=== PATIENT | female | born 1955 | race American Indian/Alaskan Native ===

== ENCOUNTER → 2021-06-16 12:21 | Outpatient (CLI) | payer MEDICAID, OTHER, SELFPAY ==
--- NOTE | 2021-06-16 | DI.RAD.S_ITS ---
PROCEDURE: XR TOE RT MIN 2V INDICATIONS: Pain in right toe(s) TECHNIQUE: 3 views of the right toe(s) acquired. COMPARISON: None. FINDINGS: Bones: No fractures or dislocations. No suspicious bony lesions. Diffuse interphalangeal degenerative changes. The lesser toes are not well evaluated on the lateral view secondary to superimposition and flexion. Moderate 1st MTP joint degeneration. Soft tissues: No suspicious soft tissue densities. IMPRESSION: Degenerative changes as above. No definite fracture or focal osseous destruction although limited evaluation for reasons outlined above. If the patient's pain or other symptoms persist, consider further evaluation with MRI Dictated by: Joe Ortega M.D. on 06/16/2021 at 12:51 Approved by: Joe Ortega M.D. on 06/16/2021 at 12:55
== END ==
PROVIDERS: Referring Provider Physician Assistant; Visit Provider Physician Assistant
DX: M79.674 Pain in right toe(s) (principal); M19.071 Primary osteoarthritis, right ankle and foot
CPT/HCPCS: 73660

== ENCOUNTER → 2021-10-21 15:22 | Outpatient (CLI) | payer MEDICAID, OTHER, SELFPAY ==
--- NOTE | 2021-10-21 | DI.RAD.S_ITS ---
PROCEDURE: XR HAND LT MIN 3V INDICATIONS: LT HAND PAIN TECHNIQUE: 3 views of the hand(s) acquired. COMPARISON: None. FINDINGS: Bones: No fractures or dislocations. Carpal bones are normally aligned. No suspicious bony lesions. Mild left CMC joint osteoarthritis. Mild 1st through 5th interphalangeal joint osteoarthritis. Bones mildly osteopenic. Soft tissues: No suspicious soft tissue calcifications. IMPRESSION: No fracture. No acute osseous lesion. If symptoms and/or clinical suspicion for pathology persists, further assessment with repeat radiographs (7-10 days) or advanced imaging (e.g. CT, MRI or bone scan) should be considered. Dictated by: Milvia Vaughn MD, PhD on 10/21/2021 at 17:43 Approved by: Milvia Vaughn MD, PhD on 10/21/2021 at 17:44
== END ==
PROVIDERS: Referring Provider Physician Assistant; Visit Provider Physician Assistant
DX: M79.642 Pain in left hand (principal)
CPT/HCPCS: 73130

== ENCOUNTER → 2022-07-28 07:53 | Outpatient (CLI) | payer MEDICAID, OTHER, SELFPAY ==
[2022-07-28 08:37] LABS: Add Manual Diff / Slide Review NO; Basophils Absolute Auto 100 /uL (0-100); Eosinophils Absolute Auto 200 /uL (0-450); Eosinophils Percent Auto 2.6 % (2-4); Hematocrit 43.4 % (36-46); Hemoglobin 14.6 g/dL (12.0-16.0); Lymphocytes Absolute Auto 1600 /uL (1100-4500); Lymphocytes Percent Auto 25.1 % (25-40); Mean Corpuscular HGB Conc 33.7 % (30-36); Mean Corpuscular Hemoglobin 27.8 PG (26-34); Mean Corpuscular Volume 82.3 fL (80-100); Monocytes Absolute Auto 500 /uL (0-900); Monocytes Percent Auto 8.4 % (3-14); Neutrophils Absolute Auto 4100 /uL (1500-7000); Neutrophils Percent Auto 62.9 % (50-75); Platelet Count 228 X10^3/uL (150-400); Red Blood Cell Count 5.27 X10^6/uL (4.0-5.2); Red Cell Distribution Width 14.5 % (11.6-14.8); White Blood Cell Count 6.5 X10^3/uL (4.5-11.0)
== END ==
PROVIDERS: PCP Physician Assistant; Referring Provider Physician Assistant; Visit Provider Family Medicine
DX: R71.8 Other abnormality of red blood cells (principal)
CPT/HCPCS: 36415; 85025; 87077; 87086; 87186

== ENCOUNTER 2023-11-10 09:00 | Outpatient (RCR) | payer MEDICARE, MEDICAID, OTHER, SELFPAY ==
--- NOTE | 2023-10-25 16:34 | PT.OIE ---
Current Diagnoses Sprain of unspecified rotator cuff capsule, subsequent encounter (10/25/23) Visit Care Team Role Provider Type Nadine Han PA-C Family Provider Non-Staff Primary Care Provider Specialty: Medical Address: [id number] [place] [address], [place], [address] Email: Dmitry Bui MD Attending Provider Non-Staff Referring Provider Specialty: Family Practice Address: [id number] [place] [address]., [place], [address] Email: Physical Therapy Initial Evaluation PT-OP-A Visit Information Start: 10/25/23 09:01 Freq: Status: Active Protocol: Document 10/25/23 09:01 NM (Rec: 10/25/23 09:52 NM [id number]) Out-Patient Physical Therapy Visit Information Visit Information Visit Type Initial Evaluation Visit Note KX after 19 visits ea year Visit Start Time 09:00 Visit Stop Time 09:45 Total Visit Minutes 45 Visit Number 1 Evaluation Information Evaluation Date 10/25/23 PT-OP-B Current Condition Start: 10/25/23 09:01 Freq: Status: Active Protocol: Document 10/25/23 09:01 NM (Rec: 10/25/23 09:52 NM [id number]) Current Condition History of Current Condition Onset Date 1 yr ago Current Complaints difficulty with reaching, lifting, weakness History of Current Condition Pt presents with B shoulder pain (L>R) beginning 1 year ago. Her R arm only recently began bothering her. She reports no known ALISHA, but states that her shoulder pain is worse with reaching overhead or forward, lifting, sleeping (sleeps with arm in ER above head), and dressing. Her shoulder pain has worsened since about 8 months ago. She also reports difficulty with being able to open jars. 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 Pt is currently retired, but formerly worked in an office. Pt reports that she regularly gets acupuncture for her hands and knees, which she finds relieves her pain. Prior Treatments and Tests no imaging or previous treatment other than acupuncture; no known follow up with MD (Dr. Dmitry Bui ) Treatment Goals Patient/Caregiver Goals to decrease shoulder pain Prior Functional Status Baseline Function- ADL's Independent Baseline Function- Mobility Independent Baseline Function- Recreation/Hobbies Participates in hand crafts ( weaving, etc) Current Functional Impairments (Reported) Functional Limitations- ADL's Limitations with dressing (has to do R arm first), washing her back, lifting >15#, reaching overhead or forward PT-OP-C Subjective Start: 10/25/23 09:01 Freq: Status: Active Protocol: Document 10/25/23 09:01 NM (Rec: 10/25/23 09:52 NM [id number]) OP-PT Subjective Patient Comments Patient Comments See hx above for pt report Patient Questionnaires Quick Dash- Upper Extremity Quick Dash UE Score 35 (54.5%) OP-PT Pain Assessment Pain Assessment Grid Paper Pain Assessment Grid Completed Yes Location Left shoulder Pain Location Details anterior shoulder, biceps tendon Intensity 7 Scale Used Numeric (0 - 10) Description Aching,Sharp Frequency Frequent Pain Duration sharp with activity Radiating Location to elbow Pain Aggravating Factors Position,ADL's,Activity, Exercise,Lifting Pain Alleviating Factors Massage Other Pain Alleviating Factors Acupuncture R shoulder Pain Location Details anterior shoulder and anterior humerus Intensity 7 Description Aching,Sharp Frequency Frequent Pain Duration sharp with activity Radiating Location to elbow Pain Aggravating Factors Position,ADL's,Activity, Exercise,Lifting Pain Alleviating Factors Massage Other Pain Alleviating Factors Acupuncture Home Pain Medication Use Pain Medications Used No Pain Behaviors Pain Behaviors Guarding,Holding Area,Wincing PT-OP-E Functional Tests Start: 10/25/23 09:01 Freq: Status: Active Protocol: Document 10/25/23 09:01 NM (Rec: 10/25/23 09:52 NM [id number]) Functional Tests Apley's Scratch Test Action 1- Left opp shoulder, painful Action 1- Right opp shoulder, painful Action 2- Left T4, painful Action 2- Right T4, painful Action 3- Left S1, painful Action 3- Right T12 PT-OP-F Manual Assessment Start: 10/25/23 09:01 Freq: Status: Active Protocol: Document 10/25/23 09:01 NM (Rec: 10/25/23 09:52 NM [id number]) Manual Assessments Soft Tissue Assessment Soft Tissue Mobility Assessment Pt has superficial soft tissue restrictions of B upper traps , periscapular/rotator cuff muscles; moderate soft tissue restrictions of pectoralis muscles (L>R). Joint Mobility Assessment Joint Mobility Assessment No clicking, popping, or catching of B shoulders with PROM assessment. Pt has full PROM of R shoulder, soft tissue stretch end feel. PROM is limited with L shoulder in flexion/abduction, and pt demos empty endfeel. PT-OP-H Neuro Start: 10/25/23 09:01 Freq: Status: Active Protocol: Document 10/25/23 09:01 NM (Rec: 10/25/23 09:52 NM [id number]) Sensation Evaluation Gross Sensation Gross Sensation WNL Comments Summary Comments Intact to light touch sensation of C4-T2 dermatomes. PT-OP-J Posture/Palpation/Skin Start: 10/25/23 09:01 Freq: Status: Active Protocol: Document 10/25/23 09:01 NM (Rec: 10/25/23 09:52 NM [id number]) Posture Evaluation Position Standing Evaluation View posterior and lateral Head/C-Spine Posture Forward Head T-Spine Posture Increased Kyphosis L-Spine Posture Increased Lordosis Shoulder Posture (L) Rounded,(R) Rounded,(L) Elevated Scapula Posture (L) Elevated,(L) Winged,(R) Winged Arm Posture (L) Internally Rotated,(R) Internally Rotated Palpation Assessment Location Right shoulder Palpation Location anterior humerus, biceps tendon, rotator cuff Palpation Findings Tenderness Palpation Details Tenderness of R anterior shoulder near R biceps tendon (long head), rotator cuff insertion of humerus Left shoulder Palpation Location anterior humerus, Biceps tendon, rotator cuff, post scapula, pec Palpation Findings Soft Tissue Tightness, Tenderness Palpation Details Tenderness of L pectoralis, anterior shoulder near L biceps tendon (long head), rotator cuff muscle insertion of humerus, minimal tenderness along medial scapula border PT-OP-K Range of Motion Start: 10/25/23 09:01 Freq: Status: Active Protocol: Document 10/25/23 09:01 NM (Rec: 10/25/23 09:52 NM [id number]) Cervical Spine Range of Motion Cervical Spine Active Degrees Testing Position Sitting Flexion 45 Extension 45 Rotation Left 70 Rotation Right 65 Lateral Flexion Left 25 Lateral Flexion Right 25 ROM Limitations Soft Tissue Tightness Shoulder Goniometric Range of Motion Shoulder Left Shoulder ROM WFL No Testing Position Supine Flexion 150 Abduction 130 External Rotation at 90 degrees 60 Abduction External Rotation at 45 degrees 70 Abduction Internal Rotation 80 Internal Rotation Behind Back (text) S1 (painful) Comments Reports pain with AROM flex, abd, ER Right Shoulder ROM WFL No Testing Position Supine Flexion 160 Abduction 170 External Rotation at 90 degrees 80 Abduction External Rotation at 45 degrees 80 Abduction Internal Rotation 80 Internal Rotation Behind Back (text) T12 Comments Pain with IR Shoulder ROM Limitations Shoulder ROM Limitations Soft Tissue Tightness,Muscle Weakness,Pain PT-OP-L Special Tests Start: 10/25/23 09:01 Freq: Status: Active Protocol: Document 10/25/23 09:01 NM (Rec: 10/25/23 09:52 NM [id number]) Special Tests Shoulder Special Tests Neer Impingement Test Results positive (L) IR/Horizontal ADD Impingement Test Results negative (B) Grind Labrum Test Results negative (B) [place] Impingement Test Results positive (L) External Rotation Lag Sign Test Results negative (B) Empty Can Test Results positive (B) Comments pain worse with IR Drop Arm Rotator Cuff Test Results negative (B) Lift-Off Rotator Cuff Test Results negative (B) [place] Test Test Results positive (L) Comments worse with IR Speed's Biceps Test Results positive (L) Yergason's Biceps Test Results negative (B) Clunk Test Test Results negative (B) Biceps Load II Test Test Results negative (B) PT-OP-M Strength Start: 10/25/23 09:01 Freq: Status: Active Protocol: Document 10/25/23 09:01 NM (Rec: 10/25/23 09:52 NM [id number]) Scapula Strength Scapula Manual Muscle Testing Left Elevation (C4) 4- Good- Adduction 4- Good- Abduction 4- Good- Depression 4- Good- Comments No pain reported with scapulothoracic motion Right Elevation (C4) 4- Good- Adduction 4- Good- Abduction 4- Good- Depression 4- Good- Shoulder Strength Shoulder Manual Muscle Testing Left Flexion 4- Good- Extension 4- Good- Abduction (C5) 4- Good- Adduction 4- Good- External Rotation 4- Good- Internal Rotation 4- Good- Comments Pain reported with all motions , worse with ER Right Flexion 4- Good- Extension 4- Good- Abduction (C5) 4- Good- Adduction 4- Good- External Rotation 4- Good- Internal Rotation 4- Good- Comments Pain with all motion, worse with resisted flexion Elbow/Forearm Strength Elbow and Forearm Manual Muscle Testing Left Flexion (C6) 4- Good- Extension (C7) 4- Good- Comments Reproduces shoulder pain with resisted elbow flex Right Flexion (C6) 4- Good- Extension (C7) 4+ Good+ Comments Reproduces shoulder pain with resisted elbow flex PT-OP-T Assessment and Plan Start: 10/25/23 09:01 Freq: Status: Active Protocol: Document 10/25/23 09:01 NM (Rec: 10/25/23 09:52 NM [id number]) Physical Therapy Assessment Rehab Potential Rehabilitation Potential Good Evaluation Complexity Number of Personal Factors/Comorbidities 3 or More Number of Body Systems Impaired 1-2 Clinical Presentation at Evaluation Stable Impairments Impairments Activity Tolerance,Functional Activities,Functional Mobility ,Integument,Pain,Posture,ROM, Soft Tissue Mobility,Strength Goals Six Impairment sleep, function Impairment Reports difficulty with sleeping due to pain Shelter Goal (LTG) Pt will report improved ability to sleep (at least 3 consecutive hours) with shoulder pain of 7/10 or less in order to demonstrate improved QOL. LTG Duration 8 weeks Five Impairment strength Impairment B shoulder strength MMT flex, Abd, ER, IR: 4-/5 Short Term Goal (STG) Pt will increase B global shoulder strength (flex, abd, ER, IR) to at least 4/5 with pain of 4/10 or less in order to demonstrate improved strength for lifting during ADLs. STG Duration 4 weeks Poising Inspector Goal (LTG) Pt will increase B global shoulder strength (flex, abd, ER, IR) to at least 4+/5 with pain of 4/10 or less in order to demonstrate improved strength for lifting during ADLs. LTG Duration 8 weeks Four Impairment ROM Impairment B shoulder AROM limitations Short Term Goal (STG) Pt will increase B shoulder AROM flex/abd by at least 10 deg ea in order to demonstrate improved ROM for reaching overhead for ADLs and to the side for dressing. STG Duration 4 weeks Shelter Goal (LTG) Pt will increase B shoulder AROM flex/abd by at least 20 deg ea in order to demonstrate improved ROM for reaching overhead for ADLs and to the side for dressing. LTG Duration 8 weeks Three Impairment ROM Impairment L shoulder AROM limitations flex: 150 deg abd: 130 deg Short Term Goal (STG) Pt will increase L shoulder AROM flex/abd by at least 15 deg ea in order to demonstrate improved ROM for reaching overhead during ADLs. STG Duration 4 weeks Poising Inspector Goal (LTG) Pt will increase L shoulder AROM flex/abd by at least 20 deg ea in order to demonstrate improved ROM for reaching overhead during ADLs. LTG Duration 8 weeks Two Impairment function Impairment L Apley IR S1 Short Term Goal (STG) Pt will improve L Apley IR reach test to at least L3 in order to demonstrate improved ability to perform ADLs and dressing. Poising Inspector Goal (LTG) Pt will improve L Apley IR reach test to at least T12 in order to demonstrate improved ability to perform ADLs and dressing. LTG Duration 8 weeks One Impairment function Impairment Quickdash: 35 or 54.5% disability Short Term Goal (STG) Pt will decrease her quickdash score by at least 5 points in order to demonstrate improved activity tolerance and ability to perform ADLs. STG Duration 4 weeks Poising Inspector Goal (LTG) Pt will decrease her quickdash score by at least 10 points ( 1 MCID) in order to demonstrate improved activity tolerance and ability to perform ADLs. LTG Duration 8 weeks Assessment Summary Assessment Pt is a 67 y.o. female presenting with B shoulder pain (L>R) beginning 1 year ago, worsening over the past few months. Symptoms are consistent with rotator cuff weakness and shoulder impingement with possible involvement of the biceps long head tendon. Pt demos limitations in L PROM and AROM , in addition to global decreased L shoulder strength. Pt also has limitations in R shoulder AROM (full PROM) and strength, but L shoulder is worse. She has soft tissue restrictions of the cervical spine paraspinals, pectoralis major muscles bilaterally. Pt' s primary site of pain is along the anterior portion of the humerus near the biceps tendon and rotator cuff muscle insertion. Pt is positive for B shoulder impingement special tests and Speed's/O' Francesco's tests. Pt's posture is kyphotic with a forward head posture and rounded shoulders. She reports difficulty with completing ADLs and participating in recreational activities (e.g. lifting). Pt would benefit from skilled PT to address strengthening of B rotator cuffs and periscapular muscles to restore to the scapulohumeral rhythm, improve B shoulder ROM, and to reduce pain symptoms in order to improve QOL and increase activity tolerance. Physical Therapy Plan Frequency and Duration Frequency of Treatment 2x/Week Duration of treatment (weeks) 8 Plan of Care Start Date 10/25/23 Plan of Care End Date 12/20/23 Therapeutic Interventions Therapeutic Interventions Home Exercise Program,Joint Mobilizations,Manual Therapy, Neuromuscular Re-education, Orthotic/Prosthetic Management ,Patient/Caregiver Education, Self-Care/Home Management,Soft Tissue Mobilization,Taping, Therapeutic Activities, Therapeutic Exercises Modalities Biofeedback,Cold Pack/Ice Massage,Electric Stimulation, Hot Packs,Infrared Therapy, Iontophoresis,Ultrasound, Vasopneumatic Devices Next Visit Focus/Plan Next Note Type Treatment Note Next Visit Plan Initiate periscapular strengthening, gentle ROM. Trial manual therapy (joint mobilizations, grade II to III ). Education: sleep posture, sitting posture (ergonomics)
--- NOTE | 2023-10-27 12:31 | PT.OTN ---
Current Diagnoses Sprain of unspecified rotator cuff capsule, subsequent encounter (10/27/23) Physical Therapy Treatment Note PT-OP-A Visit Information Start: 10/25/23 09:01 Freq: Status: Active Protocol: Document 10/27/23 09:02 NM (Rec: 10/27/23 09:48 NM [id number]) Out-Patient Physical Therapy Visit Information Visit Information Visit Type Treatment Note Visit Note KX after 19 visits ea year Visit Start Time 09:03 Visit Stop Time 09:45 Total Visit Minutes 42 Visit Number 2 Evaluation Information Evaluation Date 10/25/23 PT-OP-B Current Condition Start: 10/25/23 09:01 Freq: Status: Active Protocol: Document 10/25/23 09:01 NM (Rec: 10/25/23 09:52 NM [id number]) Current Condition History of Current Condition Onset Date 1 yr ago Current Complaints difficulty with reaching, lifting, weakness History of Current Condition Pt presents with B shoulder pain (L>R) beginning 1 year ago. Her R arm only recently began bothering her. She reports no known ALISHA, but states that her shoulder pain is worse with reaching overhead or forward, lifting, sleeping (sleeps with arm in ER above head), and dressing. Her shoulder pain has worsened since about 8 months ago. She also reports difficulty with being able to open jars. 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 Pt is currently retired, but formerly worked in an office. Pt reports that she regularly gets acupuncture for her hands and knees, which she finds relieves her pain. Prior Treatments and Tests no imaging or previous treatment other than acupuncture; no known follow up with MD (Dr. Dmitry Bui ) Treatment Goals Patient/Caregiver Goals to decrease shoulder pain Prior Functional Status Baseline Function- ADL's Independent Baseline Function- Mobility Independent Baseline Function- Recreation/Hobbies Participates in hand crafts ( weaving, etc) Current Functional Impairments (Reported) Functional Limitations- ADL's Limitations with dressing (has to do R arm first), washing her back, lifting >15#, reaching overhead or forward PT-OP-C Subjective Start: 10/25/23 09:01 Freq: Status: Active Protocol: Document 10/27/23 09:02 NM (Rec: 10/27/23 09:48 NM [id number]) OP-PT Subjective Patient Comments Patient Comments Pt reports that she has left shoulder pain 5/10, but she does not think about her pain often. She reports that she normally has pain at night, but recently its been during the day too. She was sleeping on her stomach last night, which make nelda L arm feel worse. PT-OP-E Functional Tests Start: 10/25/23 09:01 Freq: Status: Active Protocol: Document 10/25/23 09:01 NM (Rec: 10/25/23 09:52 NM [id number]) Functional Tests Apley's Scratch Test Action 1- Left opp shoulder, painful Action 1- Right opp shoulder, painful Action 2- Left T4, painful Action 2- Right T4, painful Action 3- Left S1, painful Action 3- Right T12 PT-OP-F Manual Assessment Start: 10/25/23 09:01 Freq: Status: Active Protocol: Document 10/25/23 09:01 NM (Rec: 10/25/23 09:52 NM [id number]) Manual Assessments Soft Tissue Assessment Soft Tissue Mobility Assessment Pt has superficial soft tissue restrictions of B upper traps , periscapular/rotator cuff muscles; moderate soft tissue restrictions of pectoralis muscles (L>R). Joint Mobility Assessment Joint Mobility Assessment No clicking, popping, or catching of B shoulders with PROM assessment. Pt has full PROM of R shoulder, soft tissue stretch end feel. PROM is limited with L shoulder in flexion/abduction, and pt demos empty endfeel. PT-OP-H Neuro Start: 10/25/23 09:01 Freq: Status: Active Protocol: Document 10/25/23 09:01 NM (Rec: 10/25/23 09:52 NM [id number]) Sensation Evaluation Gross Sensation Gross Sensation WNL Comments Summary Comments Intact to light touch sensation of C4-T2 dermatomes. PT-OP-J Posture/Palpation/Skin Start: 10/25/23 09:01 Freq: Status: Active Protocol: Document 10/25/23 09:01 NM (Rec: 10/25/23 09:52 NM [id number]) Posture Evaluation Position Standing Evaluation View posterior and lateral Head/C-Spine Posture Forward Head T-Spine Posture Increased Kyphosis L-Spine Posture Increased Lordosis Shoulder Posture (L) Rounded,(R) Rounded,(L) Elevated Scapula Posture (L) Elevated,(L) Winged,(R) Winged Arm Posture (L) Internally Rotated,(R) Internally Rotated Palpation Assessment Location Right shoulder Palpation Location anterior humerus, biceps tendon, rotator cuff Palpation Findings Tenderness Palpation Details Tenderness of R anterior shoulder near R biceps tendon (long head), rotator cuff insertion of humerus Left shoulder Palpation Location anterior humerus, Biceps tendon, rotator cuff, post scapula, pec Palpation Findings Soft Tissue Tightness, Tenderness Palpation Details Tenderness of L pectoralis, anterior shoulder near L biceps tendon (long head), rotator cuff muscle insertion of humerus, minimal tenderness along medial scapula border PT-OP-K Range of Motion Start: 10/25/23 09:01 Freq: Status: Active Protocol: Document 10/25/23 09:01 NM (Rec: 10/25/23 09:52 NM [id number]) Cervical Spine Range of Motion Cervical Spine Active Degrees Testing Position Sitting Flexion 45 Extension 45 Rotation Left 70 Rotation Right 65 Lateral Flexion Left 25 Lateral Flexion Right 25 ROM Limitations Soft Tissue Tightness Shoulder Goniometric Range of Motion Shoulder Left Shoulder ROM WFL No Testing Position Supine Flexion 150 Abduction 130 External Rotation at 90 degrees 60 Abduction External Rotation at 45 degrees 70 Abduction Internal Rotation 80 Internal Rotation Behind Back (text) S1 (painful) Comments Reports pain with AROM flex, abd, ER Right Shoulder ROM WFL No Testing Position Supine Flexion 160 Abduction 170 External Rotation at 90 degrees 80 Abduction External Rotation at 45 degrees 80 Abduction Internal Rotation 80 Internal Rotation Behind Back (text) T12 Comments Pain with IR Shoulder ROM Limitations Shoulder ROM Limitations Soft Tissue Tightness,Muscle Weakness,Pain PT-OP-L Special Tests Start: 10/25/23 09:01 Freq: Status: Active Protocol: Document 10/25/23 09:01 NM (Rec: 10/25/23 09:52 NM [id number]) Special Tests Shoulder Special Tests Neer Impingement Test Results positive (L) IR/Horizontal ADD Impingement Test Results negative (B) Grind Labrum Test Results negative (B) Tapia Leon Impingement Test Results positive (L) External Rotation Lag Sign Test Results negative (B) Empty Can Test Results positive (B) Comments pain worse with IR Drop Arm Rotator Cuff Test Results negative (B) Lift-Off Rotator Cuff Test Results negative (B) Rich Test Test Results positive (L) Comments worse with IR Speed's Biceps Test Results positive (L) Yerjessicason's Biceps Test Results negative (B) Clunk Test Test Results negative (B) Biceps Load II Test Test Results negative (B) PT-OP-M Strength Start: 10/25/23 09:01 Freq: Status: Active Protocol: Document 10/25/23 09:01 NM (Rec: 10/25/23 09:52 NM [id number]) Scapula Strength Scapula Manual Muscle Testing Left Elevation (C4) 4- Good- Adduction 4- Good- Abduction 4- Good- Depression 4- Good- Comments No pain reported with scapulothoracic motion Right Elevation (C4) 4- Good- Adduction 4- Good- Abduction 4- Good- Depression 4- Good- Shoulder Strength Shoulder Manual Muscle Testing Left Flexion 4- Good- Extension 4- Good- Abduction (C5) 4- Good- Adduction 4- Good- External Rotation 4- Good- Internal Rotation 4- Good- Comments Pain reported with all motions , worse with ER Right Flexion 4- Good- Extension 4- Good- Abduction (C5) 4- Good- Adduction 4- Good- External Rotation 4- Good- Internal Rotation 4- Good- Comments Pain with all motion, worse with resisted flexion Elbow/Forearm Strength Elbow and Forearm Manual Muscle Testing Left Flexion (C6) 4- Good- Extension (C7) 4- Good- Comments Reproduces shoulder pain with resisted elbow flex Right Flexion (C6) 4- Good- Extension (C7) 4+ Good+ Comments Reproduces shoulder pain with resisted elbow flex PT-OP-Q Treatments Start: 10/25/23 09:01 Freq: Status: Active Protocol: Document 10/27/23 09:02 NM (Rec: 10/27/23 09:48 NM [id number]) Therapeutic Exercises Supine Exercises Shoulder abduction Supine Exercise Name AAROM Side left Equipment Used dowel Reps/Minutes 10x5 Comments cues to stay pain free range; limited to 110 deg Shoulder flexion Supine Exercise Name AROM Side bilateral Equipment Used dowel Reps/Minutes 10x5 Comments cues to stay pain free and feel gentle stretch only Foam roller Supine Exercise Name 1. pec stretch, 2. snow angels , 3. thoracic ext Reps/Minutes 1. 1x60, 2. 2x10, 3. 1x10x3 Comments cues for correct execution; reports relief in scapular region Prone Exercises I,T,W Prone Exercise Name for periscapular strengthening Side bilateral Reps/Minutes 1x15x3 ea Comments cues to set scap, retract scap 1st; correct execution; W is hardest Sitting Exercises Scapular retractions Sitting Exercise Name added to HEP Side bilateral Reps/Minutes 1x20x5 Comments cues for scap retraction, manual assist with retraction Standing Exercises Pendulums Standing Exercise Name to improve capsular mobility and promote pain relief Side left Reps/Minutes 30 CC, 30 CCW Comments cues to move body, not shoulder; for pain reduction Manual Therapy Treatment Soft Tissue Mobilization L shoulder Body Location pec major, LH biceps, post scap (rotator cuff) Mobilization Type Rolling,Sustained Pressure, Trigger Point Release Intensity/Depth Moderate Body Position Hooklying Comments Tenderness and spasms of L rotator cuff near teres minor/ major and pec major. With sustained pressure, able to relax muscle to decrease spasms. Pt reports relief with soft tissue mob. Joint Mobilizations GH joint Joint L GHJ Direction S>I glide, P>A glide Grade II Body Position Hooklying Reps/Duration 4x30 ea Comments Oscillations in between sets. For pain relief. Trial grade III next time for mobility. Inf GHJ glide to increase abd ROM and post glides to increase IR/ER ROM. Pt tolerates well and does not report any increased pain PT-OP-T Assessment and Plan Start: 10/25/23 09:01 Freq: Status: Active Protocol: Document 10/27/23 09:02 NM (Rec: 10/27/23 09:48 NM [id number]) Physical Therapy Assessment Goals Six Impairment sleep, function Impairment Reports difficulty with sleeping due to pain Longterm Goal (LTG) Pt will report improved ability to sleep (at least 3 consecutive hours) with shoulder pain of 7/10 or less in order to demonstrate improved QOL. LTG Duration 8 weeks Five Impairment strength Impairment B shoulder strength MMT flex, Abd, ER, IR: 4-/5 Short Term Goal (STG) Pt will increase B global shoulder strength (flex, abd, ER, IR) to at least 4/5 with pain of 4/10 or less in order to demonstrate improved strength for lifting during ADLs. STG Duration 4 weeks Senior Compliance Analyst Goal (LTG) Pt will increase B global shoulder strength (flex, abd, ER, IR) to at least 4+/5 with pain of 4/10 or less in order to demonstrate improved strength for lifting during ADLs. LTG Duration 8 weeks Four Impairment ROM Impairment B shoulder AROM limitations Short Term Goal (STG) Pt will increase B shoulder AROM flex/abd by at least 10 deg ea in order to demonstrate improved ROM for reaching overhead for ADLs and to the side for dressing. STG Duration 4 weeks Senior Compliance Analyst Goal (LTG) Pt will increase B shoulder AROM flex/abd by at least 20 deg ea in order to demonstrate improved ROM for reaching overhead for ADLs and to the side for dressing. LTG Duration 8 weeks Three Impairment ROM Impairment L shoulder AROM limitations flex: 150 deg abd: 130 deg Short Term Goal (STG) Pt will increase L shoulder AROM flex/abd by at least 15 deg ea in order to demonstrate improved ROM for reaching overhead during ADLs. STG Duration 4 weeks Longterm Goal (LTG) Pt will increase L shoulder AROM flex/abd by at least 20 deg ea in order to demonstrate improved ROM for reaching overhead during ADLs. LTG Duration 8 weeks Two Impairment function Impairment L Apley IR S1 Short Term Goal (STG) Pt will improve L Apley IR reach test to at least L3 in order to demonstrate improved ability to perform ADLs and dressing. Longterm Goal (LTG) Pt will improve L Apley IR reach test to at least T12 in order to demonstrate improved ability to perform ADLs and dressing. LTG Duration 8 weeks One Impairment function Impairment Quickdash: 35 or 54.5% disability Short Term Goal (STG) Pt will decrease her quickdash score by at least 5 points in order to demonstrate improved activity tolerance and ability to perform ADLs. STG Duration 4 weeks Longterm Goal (LTG) Pt will decrease her quickdash score by at least 10 points ( 1 MCID) in order to demonstrate improved activity tolerance and ability to perform ADLs. LTG Duration 8 weeks Assessment Summary Assessment Initiated gentle shoulder flex and abd AROM and AAROM with dowel; cued pt to remain in pain free range and only to elevate arm until a gentle stretch. Pt reports pain relief in scapular region with thoracic ext, pec stretch, and snow angels on foam roller ; demos improved thoracic ext and chest mobility with these exercises. Initiated prone I,T ,W for lower/middle trap, rhomboid strengthening; pt cued to perform scapular setting and slight retraction prior to ea rep. Pt tolerates mobility and prone periscapular exercises well; will progress as tolerated in next session. Manual tmt consisting of soft tissue mobility to address restrictions of upper trap, pec, rotator cuff; pt reports decreased pain with mobilization. Performed grade II post and inf glides to L glenohumeral joint for pain relief, which pt tolerated without increased pain; will trial grade III mobilizations in next session to promote better shoulder ROM. HEP issued: scap retractions, pendulum, pec stretch, prone I /T/W. Pt would benefit from skilled PT to address L shoulder ROM and strength, strengthen periscapular muscles, postural re-education in order to decrease pain symptoms, improve QOL, and return to PLOF. Physical Therapy Plan Frequency and Duration Frequency of Treatment 2x/Week Duration of treatment (weeks) 8 Plan of Care Start Date 10/25/23 Plan of Care End Date 12/20/23 Therapeutic Interventions Therapeutic Interventions Home Exercise Program,Joint Mobilizations,Manual Therapy, Neuromuscular Re-education, Orthotic/Prosthetic Management ,Patient/Caregiver Education, Self-Care/Home Management,Soft Tissue Mobilization,Taping, Therapeutic Activities, Therapeutic Exercises Modalities Biofeedback,Cold Pack/Ice Massage,Electric Stimulation, Hot Packs,Infrared Therapy, Iontophoresis,Ultrasound, Vasopneumatic Devices Next Visit Focus/Plan Next Note Type Treatment Note Next Visit Plan POC: Continue periscapular strengthening and progress as tolerated. Cont gentle AAROM/ AROM in fwd flex/Er/IR/Abd ( progress to standing?). Promote scap retraction and setting with exercise. Scap protraction, maybe row Manual: continue soft tissue, and mobilizations grade II to III. Scapulothoracic mobilization to improve motion (likely MWM) Education: Review sleep posture, sitting posture ( ergonomics)-- already issued HO
--- NOTE | 2023-11-01 10:55 | PT.OTN ---
Current Diagnoses Sprain of unspecified rotator cuff capsule, subsequent encounter (11/01/23) Physical Therapy Treatment Note PT-OP-A Visit Information Start: 10/25/23 09:01 Freq: Status: Active Protocol: Document 11/01/23 09:52 SP (Rec: 11/01/23 11:32 SP [id number]) Out-Patient Physical Therapy Visit Information Visit Information Visit Type Treatment Note Visit Note KX after 19 visits ea year Visit Start Time 09:55 Visit Stop Time 10:55 Total Visit Minutes 60 Visit Number 3 Number of SOCIAL MEDIA DESIGNER Visits 1 Evaluation Information Evaluation Date 10/25/23 PT-OP-B Current Condition Start: 10/25/23 09:01 Freq: Status: Active Protocol: Document 10/25/23 09:01 NM (Rec: 10/25/23 09:52 NM [id number]) Current Condition History of Current Condition Onset Date 1 yr ago Current Complaints difficulty with reaching, lifting, weakness History of Current Condition Pt presents with B shoulder pain (L>R) beginning 1 year ago. Her R arm only recently began bothering her. She reports no known ALISHA, but states that her shoulder pain is worse with reaching overhead or forward, lifting, sleeping (sleeps with arm in ER above head), and dressing. Her shoulder pain has worsened since about 8 months ago. She also reports difficulty with being able to open jars. 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 Pt is currently retired, but formerly worked in an office. Pt reports that she regularly gets acupuncture for her hands and knees, which she finds relieves her pain. Prior Treatments and Tests no imaging or previous treatment other than acupuncture; no known follow up with MD (Dr. Dmitry Bui ) Treatment Goals Patient/Caregiver Goals to decrease shoulder pain Prior Functional Status Baseline Function- ADL's Independent Baseline Function- Mobility Independent Baseline Function- Recreation/Hobbies Participates in hand crafts ( weaving, etc) Current Functional Impairments (Reported) Functional Limitations- ADL's Limitations with dressing (has to do R arm first), washing her back, lifting >15#, reaching overhead or forward PT-OP-C Subjective Start: 10/25/23 09:01 Freq: Status: Active Protocol: Document 11/01/23 09:52 SP (Rec: 12/26/23 11:32 SP [id number]) OP-PT Subjective Patient Comments Patient Comments Pt reports the exercises are helping gain ROM at home. PT-OP-E Functional Tests Start: 10/25/23 09:01 Freq: Status: Active Protocol: Document 10/25/23 09:01 NM (Rec: 10/25/23 09:52 NM [id number]) Functional Tests Apley's Scratch Test Action 1- Left opp shoulder, painful Action 1- Right opp shoulder, painful Action 2- Left T4, painful Action 2- Right T4, painful Action 3- Left S1, painful Action 3- Right T12 PT-OP-F Manual Assessment Start: 10/25/23 09:01 Freq: Status: Active Protocol: Document 10/25/23 09:01 NM (Rec: 10/25/23 09:52 NM [id number]) Manual Assessments Soft Tissue Assessment Soft Tissue Mobility Assessment Pt has superficial soft tissue restrictions of B upper traps , periscapular/rotator cuff muscles; moderate soft tissue restrictions of pectoralis muscles (L>R). Joint Mobility Assessment Joint Mobility Assessment No clicking, popping, or catching of B shoulders with PROM assessment. Pt has full PROM of R shoulder, soft tissue stretch end feel. PROM is limited with L shoulder in flexion/abduction, and pt demos empty endfeel. PT-OP-H Neuro Start: 10/25/23 09:01 Freq: Status: Active Protocol: Document 10/25/23 09:01 NM (Rec: 10/25/23 09:52 NM [id number]) Sensation Evaluation Gross Sensation Gross Sensation WNL Comments Summary Comments Intact to light touch sensation of C4-T2 dermatomes. PT-OP-J Posture/Palpation/Skin Start: 10/25/23 09:01 Freq: Status: Active Protocol: Document 10/25/23 09:01 NM (Rec: 10/25/23 09:52 NM [id number]) Posture Evaluation Position Standing Evaluation View posterior and lateral Head/C-Spine Posture Forward Head T-Spine Posture Increased Kyphosis L-Spine Posture Increased Lordosis Shoulder Posture (L) Rounded,(R) Rounded,(L) Elevated Scapula Posture (L) Elevated,(L) Winged,(R) Winged Arm Posture (L) Internally Rotated,(R) Internally Rotated Palpation Assessment Location Right shoulder Palpation Location anterior humerus, biceps tendon, rotator cuff Palpation Findings Tenderness Palpation Details Tenderness of R anterior shoulder near R biceps tendon (long head), rotator cuff insertion of humerus Left shoulder Palpation Location anterior humerus, Biceps tendon, rotator cuff, post scapula, pec Palpation Findings Soft Tissue Tightness, Tenderness Palpation Details Tenderness of L pectoralis, anterior shoulder near L biceps tendon (long head), rotator cuff muscle insertion of humerus, minimal tenderness along medial scapula border PT-OP-K Range of Motion Start: 10/25/23 09:01 Freq: Status: Active Protocol: Document 10/25/23 09:01 NM (Rec: 10/25/23 09:52 NM [id number]) Cervical Spine Range of Motion Cervical Spine Active Degrees Testing Position Sitting Flexion 45 Extension 45 Rotation Left 70 Rotation Right 65 Lateral Flexion Left 25 Lateral Flexion Right 25 ROM Limitations Soft Tissue Tightness Shoulder Goniometric Range of Motion Shoulder Left Shoulder ROM WFL No Testing Position Supine Flexion 150 Abduction 130 External Rotation at 90 degrees 60 Abduction External Rotation at 45 degrees 70 Abduction Internal Rotation 80 Internal Rotation Behind Back (text) S1 (painful) Comments Reports pain with AROM flex, abd, ER Right Shoulder ROM WFL No Testing Position Supine Flexion 160 Abduction 170 External Rotation at 90 degrees 80 Abduction External Rotation at 45 degrees 80 Abduction Internal Rotation 80 Internal Rotation Behind Back (text) T12 Comments Pain with IR Shoulder ROM Limitations Shoulder ROM Limitations Soft Tissue Tightness,Muscle Weakness,Pain PT-OP-L Special Tests Start: 10/25/23 09:01 Freq: Status: Active Protocol: Document 10/25/23 09:01 NM (Rec: 10/25/23 09:52 NM [id number]) Special Tests Shoulder Special Tests Neer Impingement Test Results positive (L) IR/Horizontal ADD Impingement Test Results negative (B) Grind Labrum Test Results negative (B) [place] Impingement Test Results positive (L) External Rotation Lag Sign Test Results negative (B) Empty Can Test Results positive (B) Comments pain worse with IR Drop Arm Rotator Cuff Test Results negative (B) Lift-Off Rotator Cuff Test Results negative (B) [place] Test Test Results positive (L) Comments worse with IR Speed's Biceps Test Results positive (L) Yergason's Biceps Test Results negative (B) Clunk Test Test Results negative (B) Biceps Load II Test Test Results negative (B) PT-OP-M Strength Start: 10/25/23 09:01 Freq: Status: Active Protocol: Document 10/25/23 09:01 NM (Rec: 10/25/23 09:52 NM [id number]) Scapula Strength Scapula Manual Muscle Testing Left Elevation (C4) 4- Good- Adduction 4- Good- Abduction 4- Good- Depression 4- Good- Comments No pain reported with scapulothoracic motion Right Elevation (C4) 4- Good- Adduction 4- Good- Abduction 4- Good- Depression 4- Good- Shoulder Strength Shoulder Manual Muscle Testing Left Flexion 4- Good- Extension 4- Good- Abduction (C5) 4- Good- Adduction 4- Good- External Rotation 4- Good- Internal Rotation 4- Good- Comments Pain reported with all motions , worse with ER Right Flexion 4- Good- Extension 4- Good- Abduction (C5) 4- Good- Adduction 4- Good- External Rotation 4- Good- Internal Rotation 4- Good- Comments Pain with all motion, worse with resisted flexion Elbow/Forearm Strength Elbow and Forearm Manual Muscle Testing Left Flexion (C6) 4- Good- Extension (C7) 4- Good- Comments Reproduces shoulder pain with resisted elbow flex Right Flexion (C6) 4- Good- Extension (C7) 4+ Good+ Comments Reproduces shoulder pain with resisted elbow flex PT-OP-Q Treatments Start: 10/25/23 09:01 Freq: Status: Active Protocol: Document 11/01/23 09:52 SP (Rec: 11/01/23 11:32 SP [id number]) Therapeutic Exercises Supine Exercises Shoulder abduction Supine Exercise Name AAROM Side left Equipment Used dowel Reps/Minutes 10x5 Comments cues to stay pain free range; limited to 110 deg Shoulder flexion Supine Exercise Name L shld AROM (163 deg) Side bilateral Equipment Used dowel AAROM Reps/Minutes 10x5 Comments cues to stay pain free and feel gentle stretch only Foam roller Supine Exercise Name 1. pec stretch, 2. snow angels , 3. HABD, 4. thoracic ext Side bilateral Resistance small blue full length vs 1/2 foam roller Reps/Minutes 1. 1x60, 2. 2x10, 3. 1x10x3 Comments cues for correct execution; reports relief in L scapular region Prone Exercises I,T,W Prone Exercise Name periscapular strengthening: Ts , Is, added Ys, Ws (neck pain/ hold 11/01) Side left Equipment Used If still ok 11/03 tx, give HO for home Reps/Minutes 15 reps each Comments cues to set scap, Rhomboid, LT facilitation, max cue head pos & elbow ext Sidelying Exercises open book Sidelying Exercise Name added to HEP Side left Resistance AROM Equipment Used tactile cues for scapular glide retraction/depression Reps/Minutes 5 reps, 3 reps 2 breath hold Comments cued slower pacing, scapular glide retract/depress/TS rot, head turn /c arm abd Sidelying Exercise Name added to HEP Side left Resistance AROM Reps/Minutes x8 reps Comments cued slower pacing con/ eccentric painfree almost full range- impr inf glide Standing Exercises Pendulums Standing Exercise Name to improve capsular mobility and promote pain relief Side left Reps/Minutes 30 CC, 30 CCW Comments cues to move body, not shoulder; for pain reduction Manual Therapy Treatment Soft Tissue Mobilization neck Body Location L>R UT, LS, SOR Mobilization Type Strumming,Sustained Pressure, Other Intensity/Depth Moderate Body Position Hooklying Comments manual STMS and MWM AROM head turns/nods L shoulder Body Location pec major, LH biceps, post scap (rotator cuff) Mobilization Type Rolling,Sustained Pressure, Trigger Point Release Intensity/Depth Moderate Body Position Hooklying Comments Tenderness and spasms of L rotator cuff near teres minor/ major and pec major. With sustained pressure, able to relax muscle to decrease spasms, cued breath. Pt reports relief with soft tissue mob. Joint Mobilizations GH joint Joint L GHJ Direction S>I glide, P>A glide Grade II Body Position Hooklying Reps/Duration 4x30 ea Comments II- III PA. Oscillations in between sets. For pain relief. Inf GHJ glide to increase abd ROM and post glides to increase IR/ER ROM. Pt tolerates well and does not report any increased pain PT-OP-T Assessment and Plan Start: 10/25/23 09:01 Freq: Status: Active Protocol: Document 11/01/23 09:52 SP (Rec: 11/01/23 11:32 SP [id number]) Physical Therapy Assessment Goals Six Impairment sleep, function Impairment Reports difficulty with sleeping due to pain Retirement Goal (LTG) Pt will report improved ability to sleep (at least 3 consecutive hours) with shoulder pain of 7/10 or less in order to demonstrate improved QOL. LTG Duration 8 weeks Five Impairment strength Impairment B shoulder strength MMT flex, Abd, ER, IR: 4-/5 Short Term Goal (STG) Pt will increase B global shoulder strength (flex, abd, ER, IR) to at least 4/5 with pain of 4/10 or less in order to demonstrate improved strength for lifting during ADLs. 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 LTG Duration 8 weeks Four Impairment ROM Impairment B shoulder AROM limitations Short Term Goal (STG) Pt will increase B shoulder AROM flex/abd by at least 10 deg ea in order to demonstrate improved ROM for reaching overhead for ADLs and to the side for dressing. STG Duration 4 weeks Retirement Goal (LTG) Pt will increase B shoulder AROM flex/abd by at least 20 deg ea in order to demonstrate improved ROM for reaching overhead for ADLs and to the side for dressing. LTG Duration 8 weeks Three Impairment ROM Impairment L shoulder AROM limitations flex: 150 deg abd: 130 deg Short Term Goal (STG) Pt will increase L shoulder AROM flex/abd by at least 15 deg ea in order to demonstrate improved ROM for reaching overhead during ADLs. STG Duration 4 weeks Warehouse Supervisor [address] Shift Goal (LTG) Pt will increase L shoulder AROM flex/abd by at least 20 deg ea in order to demonstrate improved ROM for reaching overhead during ADLs. LTG Duration 8 weeks Two Impairment function Impairment L Apley IR S1 Short Term Goal (STG) Pt will improve L Apley IR reach test to at least L3 in order to demonstrate improved ability to perform ADLs and dressing. Retirement Goal (LTG) Pt will improve L Apley IR reach test to at least T12 in order to demonstrate improved ability to perform ADLs and dressing. LTG Duration 8 weeks One Impairment function Impairment Quickdash: 35 or 54.5% disability Short Term Goal (STG) Pt will decrease her quickdash score by at least 5 points in order to demonstrate improved activity tolerance and ability to perform ADLs. STG Duration 4 weeks Retirement Goal (LTG) Pt will decrease her quickdash score by at least 10 points ( 1 MCID) in order to demonstrate improved activity tolerance and ability to perform ADLs. LTG Duration 8 weeks Assessment Summary Assessment Pt verbose and needs cues at times for focus on task/ther ex at hand. She continues have discomfort over distal RTC humeral attachment into ABD> FF in hooklying. Improves post manual STMs and assisted light inferior glide during AROM ABD/ HABD and cues for slower pacing, no UT recruitment during mobility. She reports almost painfree during added AROM sidelying ABD & HABD ( open book) and FF/HABD over foam roller. Pt requires cues for set up, slower pacing, proper form throughout most ther ex today's tx. Physical Therapy Plan Frequency and Duration Frequency of Treatment 2x/Week Duration of treatment (weeks) 8 Plan of Care Start Date 10/25/23 Plan of Care End Date 12/20/23 Therapeutic Interventions Therapeutic Interventions Home Exercise Program,Joint Mobilizations,Manual Therapy, Neuromuscular Re-education, Orthotic/Prosthetic Management ,Patient/Caregiver Education, Self-Care/Home Management,Soft Tissue Mobilization,Taping, Therapeutic Activities, Therapeutic Exercises Modalities Biofeedback,Cold Pack/Ice Massage,Electric Stimulation, Hot Packs,Infrared Therapy, Iontophoresis,Ultrasound, Vasopneumatic Devices Next Visit Focus/Plan Next Note Type Treatment Note Next Visit Plan Review HEP for mechanics/set up/proper form with decreased conversation and more body awareness /c slower pacing. POC: Continue periscapular strengthening and progress as tolerated. Cont gentle AAROM/ AROM in fwd flex/Er/IR/Abd ( progress to standing?). Promote scap retraction and setting with exercise. Scap protraction, maybe row Manual: continue soft tissue, and mobilizations grade II to III. Scapulothoracic mobilization to improve motion (likely MWM) Education: Review sleep posture, sitting posture ( ergonomics)-- already issued HO
--- NOTE | 2023-11-03 15:03 | PT.OTN ---
Current Diagnoses Sprain of unspecified rotator cuff capsule, subsequent encounter (11/03/23) Physical Therapy Treatment Note PT-OP-A Visit Information Start: 10/25/23 09:01 Freq: Status: Active Protocol: Document 11/03/23 09:04 NM (Rec: 11/03/23 09:47 NM [id number]) Out-Patient Physical Therapy Visit Information Visit Information Visit Type Treatment Note Visit Note KX after 19 visits ea year Visit Start Time 09:00 Visit Stop Time 09:45 Total Visit Minutes 45 Visit Number 4 Evaluation Information Evaluation Date 10/25/23 PT-OP-B Current Condition Start: 10/25/23 09:01 Freq: Status: Active Protocol: Document 10/25/23 09:01 NM (Rec: 10/25/23 09:52 NM [id number]) Current Condition History of Current Condition Onset Date 1 yr ago Current Complaints difficulty with reaching, lifting, weakness History of Current Condition Pt presents with B shoulder pain (L>R) beginning 1 year ago. Her R arm only recently began bothering her. She reports no known ALISHA, but states that her shoulder pain is worse with reaching overhead or forward, lifting, sleeping (sleeps with arm in ER above head), and dressing. Her shoulder pain has worsened since about 8 months ago. She also reports difficulty with being able to open jars. 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 Pt is currently retired, but formerly worked in an office. Pt reports that she regularly gets acupuncture for her hands and knees, which she finds relieves her pain. Prior Treatments and Tests no imaging or previous treatment other than acupuncture; no known follow up with MD (Dr. Dmitry Bui ) Treatment Goals Patient/Caregiver Goals to decrease shoulder pain Prior Functional Status Baseline Function- ADL's Independent Baseline Function- Mobility Independent Baseline Function- Recreation/Hobbies Participates in hand crafts ( weaving, etc) Current Functional Impairments (Reported) Functional Limitations- ADL's Limitations with dressing (has to do R arm first), washing her back, lifting >15#, reaching overhead or forward PT-OP-C Subjective Start: 10/25/23 09:01 Freq: Status: Active Protocol: Document 11/03/23 09:04 NM (Rec: 11/03/23 09:47 NM [id number]) OP-PT Subjective Patient Comments Patient Comments Pt reports pain with sleeping, but she has been trying to sleep on her back or her L side to prevent rolling onto her R side. She has no L shoulder pain at rest, but only with reaching. PT-OP-E Functional Tests Start: 10/25/23 09:01 Freq: Status: Active Protocol: Document 10/25/23 09:01 NM (Rec: 10/25/23 09:52 NM [id number]) Functional Tests Apley's Scratch Test Action 1- Left opp shoulder, painful Action 1- Right opp shoulder, painful Action 2- Left T4, painful Action 2- Right T4, painful Action 3- Left S1, painful Action 3- Right T12 PT-OP-F Manual Assessment Start: 10/25/23 09:01 Freq: Status: Active Protocol: Document 10/25/23 09:01 NM (Rec: 10/25/23 09:52 NM [id number]) Manual Assessments Soft Tissue Assessment Soft Tissue Mobility Assessment Pt has superficial soft tissue restrictions of B upper traps , periscapular/rotator cuff muscles; moderate soft tissue restrictions of pectoralis muscles (L>R). Joint Mobility Assessment Joint Mobility Assessment No clicking, popping, or catching of B shoulders with PROM assessment. Pt has full PROM of R shoulder, soft tissue stretch end feel. PROM is limited with L shoulder in flexion/abduction, and pt demos empty endfeel. PT-OP-H Neuro Start: 10/25/23 09:01 Freq: Status: Active Protocol: Document 10/25/23 09:01 NM (Rec: 10/25/23 09:52 NM [id number]) Sensation Evaluation Gross Sensation Gross Sensation WNL Comments Summary Comments Intact to light touch sensation of C4-T2 dermatomes. PT-OP-J Posture/Palpation/Skin Start: 10/25/23 09:01 Freq: Status: Active Protocol: Document 10/25/23 09:01 NM (Rec: 10/25/23 09:52 NM [id number]) Posture Evaluation Position Standing Evaluation View posterior and lateral Head/C-Spine Posture Forward Head T-Spine Posture Increased Kyphosis L-Spine Posture Increased Lordosis Shoulder Posture (L) Rounded,(R) Rounded,(L) Elevated Scapula Posture (L) Elevated,(L) Winged,(R) Winged Arm Posture (L) Internally Rotated,(R) Internally Rotated Palpation Assessment Location Right shoulder Palpation Location anterior humerus, biceps tendon, rotator cuff Palpation Findings Tenderness Palpation Details Tenderness of R anterior shoulder near R biceps tendon (long head), rotator cuff insertion of humerus Left shoulder Palpation Location anterior humerus, Biceps tendon, rotator cuff, post scapula, pec Palpation Findings Soft Tissue Tightness, Tenderness Palpation Details Tenderness of L pectoralis, anterior shoulder near L biceps tendon (long head), rotator cuff muscle insertion of humerus, minimal tenderness along medial scapula border PT-OP-K Range of Motion Start: 10/25/23 09:01 Freq: Status: Active Protocol: Document 10/25/23 09:01 NM (Rec: 10/25/23 09:52 NM [id number]) Cervical Spine Range of Motion Cervical Spine Active Degrees Testing Position Sitting Flexion 45 Extension 45 Rotation Left 70 Rotation Right 65 Lateral Flexion Left 25 Lateral Flexion Right 25 ROM Limitations Soft Tissue Tightness Shoulder Goniometric Range of Motion Shoulder Left Shoulder ROM WFL No Testing Position Supine Flexion 150 Abduction 130 External Rotation at 90 degrees 60 Abduction External Rotation at 45 degrees 70 Abduction Internal Rotation 80 Internal Rotation Behind Back (text) S1 (painful) Comments Reports pain with AROM flex, abd, ER Right Shoulder ROM WFL No Testing Position Supine Flexion 160 Abduction 170 External Rotation at 90 degrees 80 Abduction External Rotation at 45 degrees 80 Abduction Internal Rotation 80 Internal Rotation Behind Back (text) T12 Comments Pain with IR Shoulder ROM Limitations Shoulder ROM Limitations Soft Tissue Tightness,Muscle Weakness,Pain PT-OP-L Special Tests Start: 10/25/23 09:01 Freq: Status: Active Protocol: Document 10/25/23 09:01 NM (Rec: 10/25/23 09:52 NM [id number]) Special Tests Shoulder Special Tests Neer Impingement Test Results positive (L) IR/Horizontal ADD Impingement Test Results negative (B) Grind Labrum Test Results negative (B) Tapia Leon Impingement Test Results positive (L) External Rotation Lag Sign Test Results negative (B) Empty Can Test Results positive (B) Comments pain worse with IR Drop Arm Rotator Cuff Test Results negative (B) Lift-Off Rotator Cuff Test Results negative (B) Evangeline Test Test Results positive (L) Comments worse with IR Speed's Biceps Test Results positive (L) Yergason's Biceps Test Results negative (B) Clunk Test Test Results negative (B) Biceps Load II Test Test Results negative (B) PT-OP-M Strength Start: 10/25/23 09:01 Freq: Status: Active Protocol: Document 10/25/23 09:01 NM (Rec: 10/25/23 09:52 NM [id number]) Scapula Strength Scapula Manual Muscle Testing Left Elevation (C4) 4- Good- Adduction 4- Good- Abduction 4- Good- Depression 4- Good- Comments No pain reported with scapulothoracic motion Right Elevation (C4) 4- Good- Adduction 4- Good- Abduction 4- Good- Depression 4- Good- Shoulder Strength Shoulder Manual Muscle Testing Left Flexion 4- Good- Extension 4- Good- Abduction (C5) 4- Good- Adduction 4- Good- External Rotation 4- Good- Internal Rotation 4- Good- Comments Pain reported with all motions , worse with ER Right Flexion 4- Good- Extension 4- Good- Abduction (C5) 4- Good- Adduction 4- Good- External Rotation 4- Good- Internal Rotation 4- Good- Comments Pain with all motion, worse with resisted flexion Elbow/Forearm Strength Elbow and Forearm Manual Muscle Testing Left Flexion (C6) 4- Good- Extension (C7) 4- Good- Comments Reproduces shoulder pain with resisted elbow flex Right Flexion (C6) 4- Good- Extension (C7) 4+ Good+ Comments Reproduces shoulder pain with resisted elbow flex PT-OP-Q Treatments Start: 10/25/23 09:01 Freq: Status: Active Protocol: Document 11/03/23 09:04 NM (Rec: 11/03/23 09:47 NM [id number]) Therapeutic Exercises Supine Exercises Shoulder abduction Supine Exercise Name AAROM Side left Equipment Used dowel Reps/Minutes 10x5 Comments cues to stay pain free range; limited to 110 deg Shoulder flexion Supine Exercise Name L shld AROM Side bilateral Equipment Used dowel AAROM Reps/Minutes 10x5 Comments cues to stay pain free and feel gentle stretch only Prone Exercises prone on elbows scapular retraction Prone Exercise Name start protraction > retraction Side bilateral Reps/Minutes 1x10 Comments reports good feedback, no pain ; cues for execution I,T,W Prone Exercise Name periscapular strengthening: Ts , Is, Ws (no neck pain today), add Y next tmt Side left Equipment Used cues for less abd in W position to dec any pain Reps/Minutes 1x15x3 Comments mod cues for scap setting/ retraction 1st; issued HO Sidelying Exercises abd Sidelying Exercise Name PT assisted with upwd scap rotation toward end range Side left Resistance AROM Reps/Minutes x8 reps Comments cued slower pacing con/ eccentric painfree almost full range- impr inf glide Standing Exercises Wall slide Standing Exercise Name serratus anterior activation Side bilateral Equipment Used forearms on wall Reps/Minutes 1x10x2 Comments cues for protraction; reports no pain, feedback feels good B shlder ER Standing Exercise Name isometric- no pain reported Side bilateral Equipment Used lvl 2 teal tb Reps/Minutes 1x10 with 5 sec hold Comments cues for scap retraction, upright posture, slow motion; hold contraction Row Standing Exercise Name no pain reported Side bilateral Resistance lvl 3 tb Reps/Minutes 1x10 Comments cues for form, scap retraction , no UT compensation, slow motion PT-OP-T Assessment and Plan Start: 10/25/23 09:01 Freq: Status: Active Protocol: Document 11/03/23 09:04 NM (Rec: 11/03/23 09:47 NM [id number]) Physical Therapy Assessment Goals Six Impairment sleep, function Impairment Reports difficulty with sleeping due to pain Assisted Goal (LTG) Pt will report improved ability to sleep (at least 3 consecutive hours) with shoulder pain of 7/10 or less in order to demonstrate improved QOL. LTG Duration 8 weeks Five Impairment strength Impairment B shoulder strength MMT flex, Abd, ER, IR: 4-/5 Short Term Goal (STG) Pt will increase B global shoulder strength (flex, abd, ER, IR) to at least 4/5 with pain of 4/10 or less in order to demonstrate improved strength for lifting during ADLs. STG Duration 4 weeks Leaf Sorter Goal (LTG) Pt will increase B global shoulder strength (flex, abd, ER, IR) to at least 4+/5 with pain of 4/10 or less in order to demonstrate improved strength for lifting during ADLs. LTG Duration 8 weeks Four Impairment ROM Impairment B shoulder AROM limitations Short Term Goal (STG) Pt will increase B shoulder AROM flex/abd by at least 10 deg ea in order to demonstrate improved ROM for reaching overhead for ADLs and to the side for dressing. STG Duration 4 weeks Assisted Goal (LTG) Pt will increase B shoulder AROM flex/abd by at least 20 deg ea in order to demonstrate improved ROM for reaching overhead for ADLs and to the side for dressing. LTG Duration 8 weeks Three Impairment ROM Impairment L shoulder AROM limitations flex: 150 deg abd: 130 deg Short Term Goal (STG) Pt will increase L shoulder AROM flex/abd by at least 15 deg ea in order to demonstrate improved ROM for reaching overhead during ADLs. STG Duration 4 weeks Assisted Goal (LTG) Pt will increase L shoulder AROM flex/abd by at least 20 deg ea in order to demonstrate improved ROM for reaching overhead during ADLs. LTG Duration 8 weeks Two Impairment function Impairment L Apley IR S1 Short Term Goal (STG) Pt will improve L Apley IR reach test to at least L3 in order to demonstrate improved ability to perform ADLs and dressing. Assisted Goal (LTG) Pt will improve L Apley IR reach test to at least T12 in order to demonstrate improved ability to perform ADLs and dressing. LTG Duration 8 weeks One Impairment function Impairment Quickdash: 35 or 54.5% disability Short Term Goal (STG) Pt will decrease her quickdash score by at least 5 points in order to demonstrate improved activity tolerance and ability to perform ADLs. STG Duration 4 weeks Leaf Sorter Goal (LTG) Pt will decrease her quickdash score by at least 10 points ( 1 MCID) in order to demonstrate improved activity tolerance and ability to perform ADLs. LTG Duration 8 weeks Assessment Summary Assessment Pt reports improvement in symptoms with scapular setting and retraction first prior to L shoulder fwd flexion or abduction; she requires moderate cues during ea exercise. Pt reports no neck pain today with prone exercises; will re-add prone Y 's next time for better lower trap activation. Able to perform prone W's without ant shoulder pain if arm in less abd and with added scap retraction. Initiated serratus wall slide, rows, B ER with resistance band for more rotator cuff contraction and better periscapular musculature for uprward rotation. Pt consistently requires moderate cues for slower motion to improve scapulohumeral control and to prevent compensations. Issued HEP: prone I, W, T, row, serratus wall slide. No manual tmt due to time limitations as pt is verbose and difficult to redirect at times. Overall , pt reporting improvement in L shoulder strength and symptoms since IE. Pt would benefit from skilled PT to address limitations in rotator cuff and periscapular strength, L shoulder ROM in order to decrease impingement symptoms, improve activity tolerance & ADL performance and QOL. Physical Therapy Plan Frequency and Duration Frequency of Treatment 2x/Week Duration of treatment (weeks) 8 Plan of Care Start Date 10/25/23 Plan of Care End Date 12/20/23 Therapeutic Interventions Therapeutic Interventions Home Exercise Program,Joint Mobilizations,Manual Therapy, Neuromuscular Re-education, Orthotic/Prosthetic Management ,Patient/Caregiver Education, Self-Care/Home Management,Soft Tissue Mobilization,Taping, Therapeutic Activities, Therapeutic Exercises Modalities Biofeedback,Cold Pack/Ice Massage,Electric Stimulation, Hot Packs,Infrared Therapy, Iontophoresis,Ultrasound, Vasopneumatic Devices Next Visit Focus/Plan Next Note Type Treatment Note Next Visit Plan Review HEP for mechanics/set up/proper form with decreased conversation and more body awareness /c slower pacing. POC: Continue periscapular/RTC strengthening and progress as tolerated. Cont gentle AAROM/ AROM in fwd flex/Er/IR/Abd ( progress to standing?). Promote scap retraction and setting with exercise. Scap protraction, maybe row. Trial self inf glide during abd, progress AAROM and add IR AAROM Manual: continue soft tissue, and mobilizations grade II to III. Scapulothoracic mobilization to improve motion (likely MWM) Education: Review sleep posture, sitting posture ( ergonomics)-- already issued HO
--- NOTE | 2023-11-08 10:25 | PT.OTN ---
Current Diagnoses Sprain of unspecified rotator cuff capsule, subsequent encounter (11/08/23) Physical Therapy Treatment Note PT-OP-A Visit Information Start: 10/25/23 09:01 Freq: Status: Active Protocol: Document 11/08/23 09:03 NM (Rec: 11/08/23 09:45 NM [id number]) Out-Patient Physical Therapy Visit Information Visit Information Visit Type Treatment Note Visit Note KX after 19 visits ea year 11/25 2023 Visit Start Time 09:04 Visit Stop Time 09:45 Visit Number 5 Evaluation Information Evaluation Date 10/25/23 PT-OP-B Current Condition Start: 10/25/23 09:01 Freq: Status: Active Protocol: Document 10/25/23 09:01 NM (Rec: 10/25/23 09:52 NM [id number]) Current Condition History of Current Condition Onset Date 1 yr ago Current Complaints difficulty with reaching, lifting, weakness History of Current Condition Pt presents with B shoulder pain (L>R) beginning 1 year ago. Her R arm only recently began bothering her. She reports no known ALISHA, but states that her shoulder pain is worse with reaching overhead or forward, lifting, sleeping (sleeps with arm in ER above head), and dressing. Her shoulder pain has worsened since about 8 months ago. She also reports difficulty with being able to open jars. 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 Pt is currently retired, but formerly worked in an office. Pt reports that she regularly gets acupuncture for her hands and knees, which she finds relieves her pain. Prior Treatments and Tests no imaging or previous treatment other than acupuncture; no known follow up with MD (Dr. Dmitry Bui ) Treatment Goals Patient/Caregiver Goals to decrease shoulder pain Prior Functional Status Baseline Function- ADL's Independent Baseline Function- Mobility Independent Baseline Function- Recreation/Hobbies Participates in hand crafts ( weaving, etc) Current Functional Impairments (Reported) Functional Limitations- ADL's Limitations with dressing (has to do R arm first), washing her back, lifting >15#, reaching overhead or forward PT-OP-C Subjective Start: 10/25/23 09:01 Freq: Status: Active Protocol: Document 11/08/23 09:03 NM (Rec: 11/08/23 09:45 NM [id number]) OP-PT Subjective Patient Comments Patient Comments Pt reports 5/10 L shoulder pain. She reports improvement in overall symptoms and good compliance with her HEP. PT-OP-E Functional Tests Start: 10/25/23 09:01 Freq: Status: Active Protocol: Document 10/25/23 09:01 NM (Rec: 10/25/23 09:52 NM [id number]) Functional Tests Apley's Scratch Test Action 1- Left opp shoulder, painful Action 1- Right opp shoulder, painful Action 2- Left T4, painful Action 2- Right T4, painful Action 3- Left S1, painful Action 3- Right T12 PT-OP-F Manual Assessment Start: 10/25/23 09:01 Freq: Status: Active Protocol: Document 10/25/23 09:01 NM (Rec: 10/25/23 09:52 NM [id number]) Manual Assessments Soft Tissue Assessment Soft Tissue Mobility Assessment Pt has superficial soft tissue restrictions of B upper traps , periscapular/rotator cuff muscles; moderate soft tissue restrictions of pectoralis muscles (L>R). Joint Mobility Assessment Joint Mobility Assessment No clicking, popping, or catching of B shoulders with PROM assessment. Pt has full PROM of R shoulder, soft tissue stretch end feel. PROM is limited with L shoulder in flexion/abduction, and pt demos empty endfeel. PT-OP-H Neuro Start: 10/25/23 09:01 Freq: Status: Active Protocol: Document 10/25/23 09:01 NM (Rec: 10/25/23 09:52 NM [id number]) Sensation Evaluation Gross Sensation Gross Sensation WNL Comments Summary Comments Intact to light touch sensation of C4-T2 dermatomes. PT-OP-J Posture/Palpation/Skin Start: 10/25/23 09:01 Freq: Status: Active Protocol: Document 10/25/23 09:01 NM (Rec: 10/25/23 09:52 NM [id number]) Posture Evaluation Position Standing Evaluation View posterior and lateral Head/C-Spine Posture Forward Head T-Spine Posture Increased Kyphosis L-Spine Posture Increased Lordosis Shoulder Posture (L) Rounded,(R) Rounded,(L) Elevated Scapula Posture (L) Elevated,(L) Winged,(R) Winged Arm Posture (L) Internally Rotated,(R) Internally Rotated Palpation Assessment Location Right shoulder Palpation Location anterior humerus, biceps tendon, rotator cuff Palpation Findings Tenderness Palpation Details Tenderness of R anterior shoulder near R biceps tendon (long head), rotator cuff insertion of humerus Left shoulder Palpation Location anterior humerus, Biceps tendon, rotator cuff, post scapula, pec Palpation Findings Soft Tissue Tightness, Tenderness Palpation Details Tenderness of L pectoralis, anterior shoulder near L biceps tendon (long head), rotator cuff muscle insertion of humerus, minimal tenderness along medial scapula border PT-OP-K Range of Motion Start: 10/25/23 09:01 Freq: Status: Active Protocol: Document 10/25/23 09:01 NM (Rec: 10/25/23 09:52 NM [id number]) Cervical Spine Range of Motion Cervical Spine Active Degrees Testing Position Sitting Flexion 45 Extension 45 Rotation Left 70 Rotation Right 65 Lateral Flexion Left 25 Lateral Flexion Right 25 ROM Limitations Soft Tissue Tightness Shoulder Goniometric Range of Motion Shoulder Left Shoulder ROM WFL No Testing Position Supine Flexion 150 Abduction 130 External Rotation at 90 degrees 60 Abduction External Rotation at 45 degrees 70 Abduction Internal Rotation 80 Internal Rotation Behind Back (text) S1 (painful) Comments Reports pain with AROM flex, abd, ER Right Shoulder ROM WFL No Testing Position Supine Flexion 160 Abduction 170 External Rotation at 90 degrees 80 Abduction External Rotation at 45 degrees 80 Abduction Internal Rotation 80 Internal Rotation Behind Back (text) T12 Comments Pain with IR Shoulder ROM Limitations Shoulder ROM Limitations Soft Tissue Tightness,Muscle Weakness,Pain PT-OP-L Special Tests Start: 10/25/23 09:01 Freq: Status: Active Protocol: Document 10/25/23 09:01 NM (Rec: 10/25/23 09:52 NM [id number]) Special Tests Shoulder Special Tests Neer Impingement Test Results positive (L) IR/Horizontal ADD Impingement Test Results negative (B) Grind Labrum Test Results negative (B) [place] Impingement Test Results positive (L) External Rotation Lag Sign Test Results negative (B) Empty Can Test Results positive (B) Comments pain worse with IR Drop Arm Rotator Cuff Test Results negative (B) Lift-Off Rotator Cuff Test Results negative (B) [place] Test Test Results positive (L) Comments worse with IR Speed's Biceps Test Results positive (L) Yergason's Biceps Test Results negative (B) Clunk Test Test Results negative (B) Biceps Load II Test Test Results negative (B) PT-OP-M Strength Start: 10/25/23 09:01 Freq: Status: Active Protocol: Document 10/25/23 09:01 NM (Rec: 10/25/23 09:52 NM [id number]) Scapula Strength Scapula Manual Muscle Testing Left Elevation (C4) 4- Good- Adduction 4- Good- Abduction 4- Good- Depression 4- Good- Comments No pain reported with scapulothoracic motion Right Elevation (C4) 4- Good- Adduction 4- Good- Abduction 4- Good- Depression 4- Good- Shoulder Strength Shoulder Manual Muscle Testing Left Flexion 4- Good- Extension 4- Good- Abduction (C5) 4- Good- Adduction 4- Good- External Rotation 4- Good- Internal Rotation 4- Good- Comments Pain reported with all motions , worse with ER Right Flexion 4- Good- Extension 4- Good- Abduction (C5) 4- Good- Adduction 4- Good- External Rotation 4- Good- Internal Rotation 4- Good- Comments Pain with all motion, worse with resisted flexion Elbow/Forearm Strength Elbow and Forearm Manual Muscle Testing Left Flexion (C6) 4- Good- Extension (C7) 4- Good- Comments Reproduces shoulder pain with resisted elbow flex Right Flexion (C6) 4- Good- Extension (C7) 4+ Good+ Comments Reproduces shoulder pain with resisted elbow flex PT-OP-Q Treatments Start: 10/25/23 09:01 Freq: Status: Active Protocol: Document 11/08/23 09:03 NM (Rec: 11/08/23 09:45 NM [id number]) Therapeutic Exercises Supine Exercises Shoulder abduction Supine Exercise Name AAROM Side left Equipment Used dowel Reps/Minutes 10x5 Comments cues to stay pain free range Shoulder flexion Supine Exercise Name L shldr AAROM Side bilateral Equipment Used dowel AAROM Reps/Minutes 10x5 Comments cues to stay pain free and feel gentle stretch only Prone Exercises I,T,W Prone Exercise Name add Y's next time>>> Sidelying Exercises ER Sidelying Exercise Name AROM Side left Equipment Used towel btwn arm and body Reps/Minutes 1x10 Comments cues for scap retraction abd Sidelying Exercise Name PT assisted with upwd scap rotation toward end range Side left Resistance AROM Reps/Minutes x10 reps Comments cued slower pacing con/ eccentric lowering; cue scap retraction Standing Exercises Serratus stabilization Standing Exercise Name for improved serratus anterior control Side left Resistance small orange ball Equipment Used wall Reps/Minutes 20 CW, 20 CCW with protraction Comments cues for slow motion, protraction; cues to push into wall Shoulder ext Side bilateral Resistance lvl 3 ho-chunk green tb Reps/Minutes 1x10 Comments reports no pain, cues to limit shdlr shrug AAROM Standing Exercise Name flex, scaption, abd (with blue tb for manual inf glide) Side left Resistance right assisting left Equipment Used dowel, mirror for cues Reps/Minutes 1x15, 2 sec hold at top Comments cues to prevent UT comp; up to 160 deg flex, 110 deg abd Wall slide Standing Exercise Name serratus anterior activation Side bilateral Equipment Used forearms on wall Reps/Minutes 1x15x2 Comments cues for protraction; reports no pain, feedback feels good B shlder ER Standing Exercise Name next time>> Row Standing Exercise Name no pain reported Side bilateral Resistance lvl 3 tb Reps/Minutes 2x10 Comments cues for form, scap retraction , no UT compensation, slow motion Manual Therapy Treatment Soft Tissue Mobilization L shoulder Body Location pec major, LH biceps Mobilization Type Rolling,Sustained Pressure, Trigger Point Release Intensity/Depth Moderate Body Position Hooklying Comments Tenderness of L LH biceps with mild spasms. Performed rolling and sustained pressure over area, pt cued to perform deep breathing and reports relaxation after Joint Mobilizations GH joint Joint L GHJ Direction S>I glide, P>A glide Grade II Body Position Hooklying Reps/Duration 6x30 ea Comments II- III PA. Oscillations in between sets. For pain relief. Inf GHJ glide to increase abd ROM and post glides to increase IR/ER ROM. Pt tolerates well and does not report any increased pain. Up to 110 deg abd, 160 deg fwd flex, 60 deg ER at 45 deg ABD before painful PT-OP-T Assessment and Plan Start: 10/25/23 09:01 Freq: Status: Active Protocol: Document 11/08/23 09:03 NM (Rec: 11/08/23 09:45 NM [id number]) Physical Therapy Assessment Goals Six Impairment sleep, function Impairment Reports difficulty with sleeping due to pain Detention Goal (LTG) Pt will report improved ability to sleep (at least 3 consecutive hours) with shoulder pain of 7/10 or less in order to demonstrate improved QOL. LTG Duration 8 weeks Five Impairment strength Impairment B shoulder strength MMT flex, Abd, ER, IR: 4-/5 Short Term Goal (STG) Pt will increase B global shoulder strength (flex, abd, ER, IR) to at least 4/5 with pain of 4/10 or less in order to demonstrate improved strength for lifting during ADLs. STG Duration 4 weeks Detention Goal (LTG) Pt will increase B global shoulder strength (flex, abd, ER, IR) to at least 4+/5 with pain of 4/10 or less in order to demonstrate improved strength for lifting during ADLs. LTG Duration 8 weeks Four Impairment ROM Impairment B shoulder AROM limitations Short Term Goal (STG) Pt will increase B shoulder AROM flex/abd by at least 10 deg ea in order to demonstrate improved ROM for reaching overhead for ADLs and to the side for dressing. STG Duration 4 weeks Wing Commander Goal (LTG) Pt will increase B shoulder AROM flex/abd by at least 20 deg ea in order to demonstrate improved ROM for reaching overhead for ADLs and to the side for dressing. LTG Duration 8 weeks Three Impairment ROM Impairment L shoulder AROM limitations flex: 150 deg abd: 130 deg Short Term Goal (STG) Pt will increase L shoulder AROM flex/abd by at least 15 deg ea in order to demonstrate improved ROM for reaching overhead during ADLs. STG Duration 4 weeks Wing Commander Goal (LTG) Pt will increase L shoulder AROM flex/abd by at least 20 deg ea in order to demonstrate improved ROM for reaching overhead during ADLs. LTG Duration 8 weeks Two Impairment function Impairment L Apley IR S1 Short Term Goal (STG) Pt will improve L Apley IR reach test to at least L3 in order to demonstrate improved ability to perform ADLs and dressing. Detention Goal (LTG) Pt will improve L Apley IR reach test to at least T12 in order to demonstrate improved ability to perform ADLs and dressing. LTG Duration 8 weeks One Impairment function Impairment Quickdash: 35 or 54.5% disability Short Term Goal (STG) Pt will decrease her quickdash score by at least 5 points in order to demonstrate improved activity tolerance and ability to perform ADLs. STG Duration 4 weeks Wing Commander Goal (LTG) Pt will decrease her quickdash score by at least 10 points ( 1 MCID) in order to demonstrate improved activity tolerance and ability to perform ADLs. LTG Duration 8 weeks Assessment Summary Assessment Pt continues to reports improvement in symptoms overall but pain is steady at 5/10 with activity. She demos improved scapular control during sidelying abd, rows, and shoulder extension. However, she requires consistent cues for controlled motion, particularly during eccentric lowering from elevation both during standing AAROM and sidelying abduction . Pt reports improvement in symptoms during most exercises with scapular setting and retraction due to improved postural mechanics and scapular alignment, but she requires moderate cues to prevent fwd shoulder flexion posture despite education in last several sessions. Added sidelying ER with limited ROM to prevent increased pain but begin strengthening rotator cuff within available ROM. Pt reports improvement in symptoms and ROM during L abd dowel AAROM with added inf glide using theraband. Continued with periscapular strengthening for improved scapular mechanics with elevation. Continued manual tmt with grade III posterior and inferior glides to improve L shoulder ROM, which pt continues to tolerate well. After manual and AAROM, pt is up to 160 deg fwd flex before pain, 110 deg abd, and 60 deg ER. Pt would benefit from skilled PT to address limitations in L shldr ROM and strength, rotator cuff strength, periscapular strength, postural education in order to decrease pain symptoms and return to PLOF. Physical Therapy Plan Frequency and Duration Frequency of Treatment 2x/Week Duration of treatment (weeks) 8 Plan of Care Start Date 10/25/23 Plan of Care End Date 12/20/23 Therapeutic Interventions Therapeutic Interventions Home Exercise Program,Joint Mobilizations,Manual Therapy, Neuromuscular Re-education, Orthotic/Prosthetic Management ,Patient/Caregiver Education, Self-Care/Home Management,Soft Tissue Mobilization,Taping, Therapeutic Activities, Therapeutic Exercises Modalities Biofeedback,Cold Pack/Ice Massage,Electric Stimulation, Hot Packs,Infrared Therapy, Iontophoresis,Ultrasound, Vasopneumatic Devices Next Visit Focus/Plan Next Note Type Treatment Note Next Visit Plan Review HEP for mechanics/set up/proper form with decreased conversation and more body awareness /c slower pacing. POC: Continue periscapular/RTC strengthening and progress as tolerated. Cont gentle AAROM/ AROM in fwd flex/Er/IR/Abd ( progress to standing). Add standing Y liftoff and IR stretch. Promote scap retraction and setting with exercise. Self inf glide during abd, progress AAROM and add IR AAROM Manual: continue soft tissue, and mobilizations grade III. Scapulothoracic mobilization to improve motion (likely MWM) Education: Review sleep posture, sitting posture ( ergonomics)-- already issued HO
--- NOTE | 2023-11-25 13:02 | PT-OP ANOTE ---
PT called and left voicemail for pt at 1300 to see if pt is doing ok. Pt has canceled and/or not confirmed last 5 appt since 11/15. PT reminded pt of cancellation policy, attendance policy, and upcoming appt on 12/01. PT also informed pt that she will be discharged if she fails to call or misses her next appt. PT was not informed that pt has been cancelling appt nor that she was removed from the schedule.
--- NOTE | 2023-11-28 08:31 | PT-OP ANOTE ---
PT called at 0830 and left voicemail for pt to check on pt as she canceled her appt today. PT reminded pt of next appt on 12/01 and attendance policy. PT asked pt to call front counter clerk and informed pt that if we do not hear from pt by 11/30 at 4 pm about upcoming appt on 12/01, then pt will be discharged from PT due to noncompliance with attendance policy.
--- NOTE | 2023-12-05 10:03 | PT-OP ANOTE ---
Addendum entered and electronically signed by Yaneth Zimmerman PTA 12/05/23 10:46: Prop Drawer updated addition of home phone to contact/demographic info. Original Note: Addendum entered and electronically signed by Yaneth Zimmerman PTA 12/05/23 10:39: [employer] called a family member and got her home # [phone]. Spoke with pt and her shoulder is bothering her, saw physician and has an xray ordered, awaiting appt but unsure if is at [facility] or [facility]. Pt cancelled today's appt via text on Sat but not received by appt time today. Pt aware when spoke, no further appts scheduled with pt aware. Suggested pt to call PT [place] after further assessment with physician and if agreement to continue therapy to call and schedule as POC written 2xwk through POC expires 12/20 so will need see PT prior to this date for PN. Original Note: Pt DNS for appt today, left message regarding wanting to help progress her during appt, request call >24 hrs if able to cancel. Chart reviewing today was last appt scheduled. Will send pt message to schedule more appts and she can call back to schedule.
--- NOTE | 2024-08-01 15:57 | PT.OPDS ---
Current Diagnoses Sprain of unspecified rotator cuff capsule, subsequent encounter (11/10/23) Visit Care Team Role Provider Type Nadine Han PA-C Family Provider Non-Staff Primary Care Provider Specialty: Medical Address: [id number] [place] [address], [place], [address] Email: Dmitry Bui MD Attending Provider Non-Staff Referring Provider Specialty: Family Practice Address: [address] [place] [address] [address] [place], [address] Email: Visit Number Visit Number 6 Discharge Summary PT-OP-B Current Condition Start: 10/25/23 09:01 Freq: Status: Active Protocol: Document 10/25/23 09:01 NM (Rec: 10/25/23 09:52 NM [id number]) Current Condition History of Current Condition Onset Date 1 yr ago Current Complaints difficulty with reaching, lifting, weakness History of Current Condition Pt presents with B shoulder pain (L>R) beginning 1 year ago. Her R arm only recently began bothering her. She reports no known ALISHA, but states that her shoulder pain is worse with reaching overhead or forward, lifting, sleeping (sleeps with arm in ER above head), and dressing. Her shoulder pain has worsened since about 8 months ago. She also reports difficulty with being able to open jars. 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 Pt is currently retired, but formerly worked in an office. Pt reports that she regularly gets acupuncture for her hands and knees, which she finds relieves her pain. Prior Treatments and Tests no imaging or previous treatment other than acupuncture; no known follow up with (Dr. Dmitry Bui ) Treatment Goals Patient/Caregiver Goals to decrease shoulder pain Prior Functional Status Baseline Function- ADL's Independent Baseline Function- Mobility Independent Baseline Function- Recreation/Hobbies Participates in hand crafts ( weaving, etc) Current Functional Impairments (Reported) Functional Limitations- ADL's Limitations with dressing (has to do R arm first), washing her back, lifting >15#, reaching overhead or forward PT-OP-C Subjective Start: 10/25/23 09:01 Freq: Status: Active Protocol: Document 11/10/23 09:03 NM (Rec: 11/10/23 09:47 NM [id number]) OP-PT Subjective Patient Comments Patient Comments Pt reports 5/10 L shoulder pain but reports improvement in ability to reach with less pain. She reports compliance with HEP. She has started going to the fitness center where she lives and is working with an instructor. PT-OP-E Functional Tests Start: 10/25/23 09:01 Freq: Status: Active Protocol: Document 10/25/23 09:01 NM (Rec: 10/25/23 09:52 NM [id number]) Functional Tests Apley's Scratch Test Action 1- Left opp shoulder, painful Action 1- Right opp shoulder, painful Action 2- Left T4, painful Action 2- Right T4, painful Action 3- Left S1, painful Action 3- Right T12 PT-OP-F Manual Assessment Start: 10/25/23 09:01 Freq: Status: Active Protocol: Document 10/25/23 09:01 NM (Rec: 10/25/23 09:52 NM [id number]) Manual Assessments Soft Tissue Assessment Soft Tissue Mobility Assessment Pt has superficial soft tissue restrictions of B upper traps , periscapular/rotator cuff muscles; moderate soft tissue restrictions of pectoralis muscles (L>R). Joint Mobility Assessment Joint Mobility Assessment No clicking, popping, or catching of B shoulders with PROM assessment. Pt has full PROM of R shoulder, soft tissue stretch end feel. PROM is limited with L shoulder in flexion/abduction, and pt demos empty endfeel. PT-OP-H Neuro Start: 10/25/23 09:01 Freq: Status: Active Protocol: Document 10/25/23 09:01 NM (Rec: 10/25/23 09:52 NM [id number]) Sensation Evaluation Gross Sensation Gross Sensation WNL Comments Summary Comments Intact to light touch sensation of C4-T2 dermatomes. PT-OP-J Posture/Palpation/Skin Start: 10/25/23 09:01 Freq: Status: Active Protocol: Document 10/25/23 09:01 NM (Rec: 10/25/23 09:52 NM [id number]) Posture Evaluation Position Standing Evaluation View posterior and lateral Head/C-Spine Posture Forward Head T-Spine Posture Increased Kyphosis L-Spine Posture Increased Lordosis Shoulder Posture (L) Rounded,(R) Rounded,(L) Elevated Scapula Posture (L) Elevated,(L) Winged,(R) Winged Arm Posture (L) Internally Rotated,(R) Internally Rotated Palpation Assessment Location Right shoulder Palpation Location anterior humerus, biceps tendon, rotator cuff Palpation Findings Tenderness Palpation Details Tenderness of R anterior shoulder near R biceps tendon (long head), rotator cuff insertion of humerus Left shoulder Palpation Location anterior humerus, Biceps tendon, rotator cuff, post scapula, pec Palpation Findings Soft Tissue Tightness, Tenderness Palpation Details Tenderness of L pectoralis, anterior shoulder near L biceps tendon (long head), rotator cuff muscle insertion of humerus, minimal tenderness along medial scapula border PT-OP-K Range of Motion Start: 10/25/23 09:01 Freq: Status: Active Protocol: Document 10/25/23 09:01 NM (Rec: 10/25/23 09:52 NM [id number]) Cervical Spine Range of Motion Cervical Spine Active Degrees Testing Position Sitting Flexion 45 Extension 45 Rotation Left 70 Rotation Right 65 Lateral Flexion Left 25 Lateral Flexion Right 25 ROM Limitations Soft Tissue Tightness Shoulder Goniometric Range of Motion Shoulder Left Shoulder ROM WFL No Testing Position Supine Flexion 150 Abduction 130 External Rotation at 90 degrees 60 Abduction External Rotation at 45 degrees 70 Abduction Internal Rotation 80 Internal Rotation Behind Back (text) S1 (painful) Comments Reports pain with AROM flex, abd, ER Right Shoulder ROM WFL No Testing Position Supine Flexion 160 Abduction 170 External Rotation at 90 degrees 80 Abduction External Rotation at 45 degrees 80 Abduction Internal Rotation 80 Internal Rotation Behind Back (text) T12 Comments Pain with IR Shoulder ROM Limitations Shoulder ROM Limitations Soft Tissue Tightness,Muscle Weakness,Pain PT-OP-L Special Tests Start: 10/25/23 09:01 Freq: Status: Active Protocol: Document 10/25/23 09:01 NM (Rec: 10/25/23 09:52 NM [id number]) Special Tests Shoulder Special Tests Neer Impingement Test Results positive (L) IR/Horizontal ADD Impingement Test Results negative (B) Grind Labrum Test Results negative (B) [place] Impingement Test Results positive (L) External Rotation Lag Sign Test Results negative (B) Empty Can Test Results positive (B) Comments pain worse with IR Drop Arm Rotator Cuff Test Results negative (B) Lift-Off Rotator Cuff Test Results negative (B) [place] Test Test Results positive (L) Comments worse with IR Speed's Biceps Test Results positive (L) Yergason's Biceps Test Results negative (B) Clunk Test Test Results negative (B) Biceps Load II Test Test Results negative (B) PT-OP-M Strength Start: 10/25/23 09:01 Freq: Status: Active Protocol: Document 10/25/23 09:01 NM (Rec: 10/25/23 09:52 NM [id number]) Scapula Strength Scapula Manual Muscle Testing Left Elevation (C4) 4- Good- Adduction 4- Good- Abduction 4- Good- Depression 4- Good- Comments No pain reported with scapulothoracic motion Right Elevation (C4) 4- Good- Adduction 4- Good- Abduction 4- Good- Depression 4- Good- Shoulder Strength Shoulder Manual Muscle Testing Left Flexion 4- Good- Extension 4- Good- Abduction (C5) 4- Good- Adduction 4- Good- External Rotation 4- Good- Internal Rotation 4- Good- Comments Pain reported with all motions , worse with ER Right Flexion 4- Good- Extension 4- Good- Abduction (C5) 4- Good- Adduction 4- Good- External Rotation 4- Good- Internal Rotation 4- Good- Comments Pain with all motion, worse with resisted flexion Elbow/Forearm Strength Elbow and Forearm Manual Muscle Testing Left Flexion (C6) 4- Good- Extension (C7) 4- Good- Comments Reproduces shoulder pain with resisted elbow flex Right Flexion (C6) 4- Good- Extension (C7) 4+ Good+ Comments Reproduces shoulder pain with resisted elbow flex PT-OP-T Assessment and Plan Start: 10/25/23 09:01 Freq: Status: Active Protocol: Document 08/01/24 15:49 NM (Rec: 08/01/24 15:57 NM [id number]) Physical Therapy Assessment Goals Six Impairment sleep, function Impairment Reports difficulty with sleeping due to pain Funeral Car Driver Goal (LTG) Pt will report improved ability to sleep (at least 3 consecutive hours) with shoulder pain of 7/10 or less in order to demonstrate improved QOL. LTG Duration 8 weeks Five Impairment strength Impairment B shoulder strength MMT flex, Abd, ER, IR: 4-/5 Short Term Goal (STG) Pt will increase B global shoulder strength (flex, abd, ER, IR) to at least 4/5 with pain of 4/10 or less in order to demonstrate improved strength for lifting during ADLs. STG Duration 4 weeks Funeral Car Driver Goal (LTG) Pt will increase B global shoulder strength (flex, abd, ER, IR) to at least 4+/5 with pain of 4/10 or less in order to demonstrate improved strength for lifting during ADLs. LTG Duration 8 weeks Four Impairment ROM Impairment B shoulder AROM limitations Short Term Goal (STG) Pt will increase B shoulder AROM flex/abd by at least 10 deg ea in order to demonstrate improved ROM for reaching overhead for ADLs and to the side for dressing. STG Duration 4 weeks Senior Care Goal (LTG) Pt will increase B shoulder AROM flex/abd by at least 20 deg ea in order to demonstrate improved ROM for reaching overhead for ADLs and to the side for dressing. LTG Duration 8 weeks Three Impairment ROM Impairment L shoulder AROM limitations flex: 150 deg abd: 130 deg Short Term Goal (STG) Pt will increase L shoulder AROM flex/abd by at least 15 deg ea in order to demonstrate improved ROM for reaching overhead during ADLs. STG Duration 4 weeks Senior Care Goal (LTG) Pt will increase L shoulder AROM flex/abd by at least 20 deg ea in order to demonstrate improved ROM for reaching overhead during ADLs. LTG Duration 8 weeks Two Impairment function Impairment L Apley IR S1 Short Term Goal (STG) Pt will improve L Apley IR reach test to at least L3 in order to demonstrate improved ability to perform ADLs and dressing. Senior Care Goal (LTG) Pt will improve L Apley IR reach test to at least T12 in order to demonstrate improved ability to perform ADLs and dressing. LTG Duration 8 weeks One Impairment function Impairment Quickdash: 35 or 54.5% disability Short Term Goal (STG) Pt will decrease her quickdash score by at least 5 points in order to demonstrate improved activity tolerance and ability to perform ADLs. STG Duration 4 weeks Senior Care Goal (LTG) Pt will decrease her quickdash score by at least 10 points ( 1 MCID) in order to demonstrate improved activity tolerance and ability to perform ADLs. LTG Duration 8 weeks Assessment Summary Assessment Pt was evaluated in October 2023 for L shoulder pain. She attended x4 sessions before pt canceled remaining sessions. Pt has not been seen in clinic since 11/10/23 and has canceled or not confirmed all subsequent appointment. PT and RADIOACTIVITY TECHNICIAN reached out to pt several times, leaving several messages to follow up with pt. Per last message with RADIOACTIVITY TECHNICIAN, pt reports that her shoulder was bothering her and she was awaiting imaging. Pt did not progress toward goals Physical Therapy Plan Frequency and Duration Frequency of Treatment 2x/Week Duration of treatment (weeks) 8 Plan of Care Start Date 10/25/23 Plan of Care End Date 12/20/23 Therapeutic Interventions Therapeutic Interventions Home Exercise Program,Joint Mobilizations,Manual Therapy, Neuromuscular Re-education, Orthotic/Prosthetic Management ,Patient/Caregiver Education, Self-Care/Home Management,Soft Tissue Mobilization,Taping, Therapeutic Activities, Therapeutic Exercises Modalities Biofeedback,Cold Pack/Ice Massage,Electric Stimulation, Hot Packs,Infrared Therapy, Iontophoresis,Ultrasound, Vasopneumatic Devices Discharge Physical Therapy Discharge Reasons No Longer Attending PT Discharge Comments Pt has not been seen in clinic since November 2023. She did not respond to PT calls to follow up with pt and cancelled remaining appt following 11/10 visit. Pt will need new referral in order to return to PT in future Next Visit Focus/Plan Next Note Type Discharge Summary Next Visit Plan discharge from PT
== END 2024-08-06 14:26 | disposition home or self-care (01) ==
LOC: PHYS 09:00
PROVIDERS: Family Provider Physician Assistant; PCP Physician Assistant; Referring Provider Family Medicine; Visit Provider Family Medicine
DX: S43.429D Sprain of unspecified rotator cuff capsule, subsequent encounter (principal)
CPT/HCPCS: 97110; 97140; 97162